=== PATIENT | male | born 1960 | race Hispanic/Latino ===

== ENCOUNTER 2022-09-15 04:35 | Emergency (ER) | payer SELFPAY ==
[~2022-09-15] VITALS: Ht 170.2 cm; Wt 62.0 kg
[2022-09-15] VITALS (29 sets, daily range): BP systolic 109–269; BP diastolic 60–161
[~2022-09-15 04:35] MED LIST: NAPROSYN500 MG PO; NO MEDS; ZITHROMAX250 MG PO
[2022-09-15 05:03] LABS: IMMATURE GRANULOCYTES 0.4 % (0.0-5.0); MEAN CELL VOLUME 89.2 fL CALC (80.0-100.0); MEAN CORPUSCULAR HGB 29.8 pG CALC (26.0-32.0); MEAN CORPUSCULAR HGB CONC 33.4 g/dL CAL (32.0-36.0); NEUT# 9.92 thou/uL (1.82-7.42); RED BLOOD COUNT 3.89 mill/uL (4.70-6.10); RED CELL DISTRI WIDTH 13.8 % (11.5-15.5)
[2022-09-15 05:05] LABS: HEMATOCRIT 34.7 % (39.0-50.0); HEMOGLOBIN 11.6 g/dl (14.0-18.0)
[2022-09-15 05:16] LABS: ALBUMIN 3.3 g/dL (3.2-5.0); BILIRUBIN, TOTAL 0.3 mg/dL (0.0-1.4); POTASSIUM 4.3 mmol/l (3.5-5.1); TOTAL PROTEIN 7.3 g/dL (6.3-8.2)
[2022-09-15 05:18] LABS: CREATININE 7.1 mg/dL (0.7-1.3); D-DIMER 1.31 mg/L (0.19-0.60)
[2022-09-15 05:19] LABS: PROTHROMBIN TIME 9.8 SECONDS (9.0-12.5)
[2022-09-15] MEDS ORDERED: [UNRECOGNIZED DRUG - OTHER] PO (05:22)
[2022-09-15 05:26] LABS: URINE BILIRUBIN - DIPSTICK NEGATIVE (NEGATIVE); URINE BLOOD DIPSTICK MODERATE (NEGATIVE); URINE COLOR YELLOW; URINE GLUCOSE - DIPSTICK 250 mg/dL (NEGATIVE); URINE KETONE NEGATIVE (NEGATIVE); URINE LEUK ESTERASE NEGATIVE (NEGATIVE); URINE PH 6.5 (4.5-8.0); URINE PROTEIN - DIPSTICK >=300 mg/dL (NEG-TRACE); URINE UROBILINOGEN - DIPSTICK 0.2 E.U./dL (0.2)
[2022-09-15 05:39] LABS: URINE NITRITE - DIPSTICK NEGATIVE (Negative)
[2022-09-15 05:40] LABS: URINE SQUAMOUS EPITHELIAL CELL FEW EPI/hpf (0-FEW); URINE WBC 0-2 WBC/hpf (0-5)
== END 2022-09-15 07:02 | disposition short-term general hospital (02) | DRG 189 ==
LOC: ED 04:35
PROVIDERS: Family Medicine
PROC: 0T9B70Z Drainage of Bladder with Drainage Device, Via Natural or Artificial Opening (ICD-10-PCS; principal; 2022-09-15)
DX: J81.1 Chronic pulmonary edema (principal); N17.9 Acute kidney failure, unspecified; E87.20 Acidosis, unspecified; I10 Essential (primary) hypertension; E11.9 Type 2 diabetes mellitus without complications; Z79.4 Long term (current) use of insulin

== ENCOUNTER 2022-09-22 02:34 | Inpatient (IN) | payer SELFPAY ==
[~2022-09-22] VITALS: Ht 162.6 cm; Wt 60.4 kg
[2022-09-22] VITALS (53 sets, daily range): BP systolic 113–218; BP diastolic 7–111
[~2022-09-22 02:34] MED LIST changes: +[UNRECOGNIZED DRUG - OTHER] PO
[2022-09-22 03:11] LABS: HEMOGLOBIN 9.5 g/dl (14.0-18.0); IMMATURE GRANULOCYTES 0.1 % (0.0-5.0); MEAN CELL VOLUME 88.8 fL CALC (80.0-100.0); MEAN CORPUSCULAR HGB 30.4 pG CALC (26.0-32.0); MEAN CORPUSCULAR HGB CONC 34.2 g/dL CAL (32.0-36.0); NEUT# 5.13 thou/uL (1.82-7.42); RED BLOOD COUNT 3.13 mill/uL (4.70-6.10); RED CELL DISTRI WIDTH 13.6 % (11.5-15.5)
[2022-09-22 03:12] LABS: HEMATOCRIT 27.8 % (39.0-50.0)
[2022-09-22 03:19] LABS: BILIRUBIN, TOTAL 0.3 mg/dL (0.0-1.4); POTASSIUM 3.7 mmol/l (3.5-5.1); TOTAL PROTEIN 6.2 g/dL (6.3-8.2)
[2022-09-22 03:28] LABS: CREATININE 6.6 mg/dL (0.7-1.3)
[2022-09-23] VITALS (30 sets, daily range): BP systolic 127–171; BP diastolic 61–129
[2022-09-23 00:49] LABS: HEMATOCRIT 27.1 % (39.0-50.0); HEMOGLOBIN 9.2 g/dl (14.0-18.0); IMMATURE GRANULOCYTES 0.5 % (0.0-5.0); MEAN CELL VOLUME 89.1 fL CALC (80.0-100.0); MEAN CORPUSCULAR HGB 30.3 pG CALC (26.0-32.0); MEAN CORPUSCULAR HGB CONC 33.9 g/dL CAL (32.0-36.0); NEUT# 3.78 thou/uL (1.82-7.42); RED BLOOD COUNT 3.04 mill/uL (4.70-6.10); RED CELL DISTRI WIDTH 13.8 % (11.5-15.5)
[2022-09-23 01:05] LABS: ANION GAP 12 (6-22 (CALC)); BUN 46 mg/dL (9-20); CARBON DIOXIDE 23 mmol/l (22-30); CHLORIDE 102 mmol/l (95-108); MAGNESIUM 1.8 mg/dL (1.6-2.3); SODIUM 132 mmol/l (137-146)
[2022-09-23 01:18] LABS: ALBUMIN 2.3 g/dL (3.2-5.0); BUN/CREATININE RATIO 7 (12-20 (CALC)); CREATININE 6.5 mg/dL (0.7-1.3); GFR FOR AFR.AMER. 11 ML/MIN (>=60 (CALC)); GFR OTHER RACES 9 ML/MIN (>=60 (CALC))
[2022-09-23] MEDS ORDERED: LIPITOR20 MG PO (10:33)
[2022-09-23] MEDS ORDERED: VIBRAMYCIN100 M2 PO (10:34)
[2022-09-23] MEDS ORDERED: NORMODYNE/TRAN100 MG PO (10:35)
[2022-09-24 00:17] VITALS: BP 143/71
[2022-09-24 06:20] VITALS: BP 164/79
[2022-09-24 07:23] LABS: ALBUMIN 2.6 g/dL (3.2-5.0); POTASSIUM 3.8 mmol/l (3.5-5.1)
[2022-09-24 07:35] LABS: CREATININE 7.2 mg/dL (0.7-1.3)
[2022-09-24 10:20] VITALS: BP 163/81
[2022-09-24 14:25] VITALS: BP 142/70
[2022-09-24 19:30] VITALS: BP 145/71
[2022-09-25] VITALS (7 sets, daily range): BP systolic 131–165; BP diastolic 65–81
[2022-09-25 06:08] LABS: ALBUMIN 2.5 g/dL (3.2-5.0); POTASSIUM 3.9 mmol/l (3.5-5.1)
[2022-09-25 06:20] LABS: CREATININE 7.3 mg/dL (0.7-1.3)
[2022-09-26 04:25] VITALS: BP 164/82
[2022-09-26 06:12] LABS: ALBUMIN 2.7 g/dL (3.2-5.0)
[2022-09-26 06:14] VITALS: BP 171/82
[2022-09-26 06:34] LABS: CREATININE 8.1 mg/dL (0.7-1.3)
[2022-09-26 07:21] VITALS: BP 170/83
[2022-09-26 10:40] VITALS: BP 139/70
== END 2022-09-26 16:00 | disposition short-term general hospital (02) | DRG 291 ==
LOC: ED 02:34 → ED-I 04:10 → ICU 04:34 → ED 04:34 → MS2 09-23 14:41
PROVIDERS: Emergency Medicine; Internal Medicine Nephrology; ADMIT Internal Medicine; ATTEND Internal Medicine
DX: I13.2 Hypertensive heart and chronic kidney disease with heart failure and with stage 5 chronic kidney disease, or end stage renal disease (principal); I50.43 Acute on chronic combined systolic (congestive) and diastolic (congestive) heart failure; J18.9 Pneumonia, unspecified organism; N17.9 Acute kidney failure, unspecified; N18.5 Chronic kidney disease, stage 5; N25.81 Secondary hyperparathyroidism of renal origin; E87.1 Hypo-osmolality and hyponatremia; E87.20 Acidosis, unspecified; E11.22 Type 2 diabetes mellitus with diabetic chronic kidney disease; D63.1 Anemia in chronic kidney disease; T50.916A Underdosing of multiple unspecified drugs, medicaments and biological substances, initial encounter; E55.9 Vitamin D deficiency, unspecified; Z91.128 Patient's intentional underdosing of medication regimen for other reason; Z20.822 Contact with and (suspected) exposure to COVID-19
CPT/HCPCS: J1756

== ENCOUNTER 2022-10-03 16:12 | Observation (INO) | payer SELFPAY ==
[2022-10-03] VITALS (23 sets, daily range): BP systolic 123–201; BP diastolic 60–99
[~2022-10-03] VITALS: Ht 162.6 cm; Wt 60.0 kg
[~2022-10-03 16:12] MED LIST changes: +LIPITOR20 MG PO; +NORMODYNE/TRAN100 MG PO; +VIBRAMYCIN100 M2 PO
--- NOTE | 2022-10-03 16:14 | NUR ---
PT TO ROOM 9. ELEANOR FREDERICK APRN NOTIFIED.
[2022-10-03 17:11] LABS: BASO% 0.9 % (0-3); EOS% 1.7 % (0-8); HEMATOCRIT 30.5 % (39.0-50.0); HEMOGLOBIN 10.4 g/dl (14.0-18.0); IMMATURE GRANULOCYTES 0.2 % (0.0-5.0); LYMPH% 12.7 % (15-41); MEAN CELL VOLUME 89.4 fL CALC (80.0-100.0); MEAN CORPUSCULAR HGB 30.5 pG CALC (26.0-32.0); MEAN CORPUSCULAR HGB CONC 34.1 g/dL CAL (32.0-36.0); MONO% 7.8 % (2-13); NEUT# 8.21 thou/uL (1.82-7.42); NEUT% 76.7 % (42-76); RED BLOOD COUNT 3.41 mill/uL (4.70-6.10); RED CELL DISTRI WIDTH 13.8 % (11.5-15.5)
[2022-10-03 17:25] LABS: ALBUMIN 3.1 g/dL (3.2-5.0); BILIRUBIN, TOTAL 0.3 mg/dL (0.0-1.4); TOTAL PROTEIN 6.2 g/dL (6.3-8.2)
--- NOTE | 2022-10-03 17:49 | NUR ---
Reassessment of patient completed. No distress noted.
[2022-10-03] MEDS ORDERED: RENVELA800 MG PO (18:19)
[2022-10-03] MEDS ORDERED: HYDRALAZINE10 M2 PO (18:19)
--- NOTE | 2022-10-03 18:20 | NUR ---
PT'S DAUGHTER IS PRESENT IN ROOM AND HAD MANY QUESTIONS FOR THE PROVIDER. ELEANOR FREDERICK APRN NOTIFIED.
--- NOTE | 2022-10-03 19:00 | NUR ---
REPORT RECEIVED FROM PAULINE. PT HAS BED ASSIGNMENT. AWAITING TRANSPORT TO FLOOR. FAMILY AT BEDSIDE UPDATED. NO DISTRESS. VSS.
--- NOTE | 2022-10-03 19:30 | NUR ---
FLOOR NURSE NOT AVAILABLE FOR REPORT. AWAITING CALL BACK.
--- NOTE | 2022-10-03 19:46 | NUR ---
REPORT GIVEN TO ROBBIN SHELL FOR ADMISSION.
--- NOTE | 2022-10-03 19:50 | NUR ---
Admission Note Report Given to: ROBBIN SHELL Transported by: Wheelchair X Stretcher Transported with: X Nurse Transporter X Patent IV O2 X Engine Pilot Location: ICU X MS2
--- NOTE | 2022-10-03 19:55 | NUR ---
PATIENT ADMITTED TO [facility] TO ROOM 272 VIA STRETCHER. AMBULATED SELF TO BED. ALERT AND ORIENTED. ABLE TO MAKE NEEDS KNOWN. ASSESSMENT COMPLETE. DENIES ANY PAIN OR DISCOMFORT. NO SIGNS OF DISTRESS. OBSERVED RIGHT CHEST DIALYSIS CATHETER, INTACT. ORIENTED PATIENT TO ROOM, CALL LIGHT AND SURROUNDINGS. BED REMAINS IN LOW POSITION. CALL POWELL IN REACH.
--- NOTE | 2022-10-04 00:20 | NUR ---
PATIENT REMAINS RESTING IN BED. ALERT AND ORIENTED. ABLE TO MAKE NEEDS KNOWN. NO COMPLAINTS VOICED AT THIS TIME. CALL LIGHT AND BELONGINGS REMAIN IN REACH.
[2022-10-04 03:34] VITALS: BP 121/59
--- NOTE | 2022-10-04 04:20 | NUR ---
PATIENT RESTING IN BED. NO SIGNS OF DISTRESS. NO COMPLAINTS OF PAIN. PATIENT REMAINS ALERT AND ABLE TO MAKE NEEDS KNOWN. BED REMAINS IN LOW POSITIOM. CALL LIGHT AND BELONGINGS WITHIN REACH.
[2022-10-04 06:21] LABS: ALBUMIN 2.6 g/dL (3.2-5.0); BILIRUBIN, TOTAL 0.3 mg/dL (0.0-1.4); TOTAL PROTEIN 5.5 g/dL (6.3-8.2)
[2022-10-04 06:25] LABS: BASO% 0.7 % (0-3); EOS% 1.8 % (0-8); HEMATOCRIT 31.2 % (39.0-50.0); HEMOGLOBIN 10.5 g/dl (14.0-18.0); IMMATURE GRANULOCYTES 0.1 % (0.0-5.0); LYMPH% 16.4 % (15-41); MEAN CORPUSCULAR HGB 30.6 pG CALC (26.0-32.0); MEAN CORPUSCULAR HGB CONC 33.7 g/dL CAL (32.0-36.0); MONO% 9.1 % (2-13); NEUT# 7.11 thou/uL (1.82-7.42); NEUT% 71.9 % (42-76); RED BLOOD COUNT 3.43 mill/uL (4.70-6.10); RED CELL DISTRI WIDTH 13.9 % (11.5-15.5)
[2022-10-04 06:55] LABS: CREATININE 5.2 mg/dL (0.7-1.3); POTASSIUM 5.3 mmol/l (3.5-5.1)
[2022-10-04 07:28] VITALS: BP 142/63
--- NOTE | 2022-10-04 08:00 | NUR ---
PT RESTING IN BED STATES NO PAIN. ASSESSMENT COMPLETED. UPDATED PT IN CURRENT PLAN OF CARE,PT INDICATED UNDERSTANDING. FALL/SAFTEY PRECAUTON IN PLACE, CALL LIGHT WITHIN REACH.
[2022-10-04 10:55] VITALS: BP 148/70
[2022-10-04 10:56] VITALS: BP 148/70
--- NOTE | 2022-10-04 12:00 | NUR ---
PT RESTIGN WATCHING TV. STATES NO PAIN. FALL/SAFTEY PRECAUTION IN PLACE, CALL LIGHT WITHIN REACH
[2022-10-04] MEDS ORDERED: NIFEDIPINE ER60 MG PO (14:07)
[2022-10-04 15:19] VITALS: BP 138/67
--- NOTE | 2022-10-04 15:30 | NUR ---
PT TRANSPORTED TO ROOM 286 FOR HEMODIALYSIS VIA WHEELCHAIR. PT ABLE TO STAND AND GET INTO WHEELCHAIR INDEPENDENTLY AND STAND FROM WHEELCHAIR AND GET ONTO RECLINER INDEPENDENTLY. PT HAS TELEMETRY ATTATCHED. ROOM AIR. IV SALINE LOCKED. REPORT RECEIVED FROM PRIMARY NURSE Nicole VAZQUEZ RN. CARE OF PT ASSUMED AT THIS TIME.
--- NOTE | 2022-10-04 15:40 | NUR ---
HEMODIALYSIS TREATMENT INITIATED AT 1539. SEE HEMODIALYSIS TREATMENT PROCESS INTERVENTION AND TABLO TREATMENT FLOWSHEET FOR TREATMENT SPECIFIC DETAILS.
--- NOTE | 2022-10-04 16:00 | NUR ---
PT AT DIALYSIS TREATMENT
[2022-10-04 19:20] VITALS: BP 139/70
--- NOTE | 2022-10-04 19:20 | NUR ---
HEMODIALYSIS TREATMENT COMPLETED AT 1920. SEE HEMODIALYSIS TREATMENT PROCESS INTERVENTION AND TABLO TREATMENT FLOWSHEET FOR TREATMENT SPECIFIC DETAILS.
--- NOTE | 2022-10-04 19:25 | NUR ---
L-AC 20G IV site discontinued, cath intact. No edema , no redness, voices no discomfort.
--- NOTE | 2022-10-04 19:25 | NUR ---
TELEMETRY REMOVED AND RETURNED TO ED.
--- NOTE | 2022-10-04 19:30 | NUR ---
DISCHARGE NOTE Verbal and printed discharge instructions given to pateint and daughter. Patient verbalizes understanding of same. Discharged in good condition via Wheelchair to Home with family. All belongings sent with pt.
== END 2022-10-04 19:00 | disposition home or self-care (01) | DRG 682 ==
LOC: ED 16:12 → ED-I 17:51 → ED 18:09 → MS2 18:10
PROVIDERS: Internal Medicine Nephrology; Nurse Practitioner; Nurse Practitioner Family; ADMIT Internal Medicine; ATTEND Internal Medicine
PROC: 5A1D70Z Performance of Urinary Filtration, Intermittent, Less than 6 Hours Per Day (ICD-10-PCS; principal; 2022-10-04)
DX: I12.0 Hypertensive chronic kidney disease with stage 5 chronic kidney disease or end stage renal disease (principal); N18.6 End stage renal disease; N25.81 Secondary hyperparathyroidism of renal origin; E11.22 Type 2 diabetes mellitus with diabetic chronic kidney disease; Z99.2 Dependence on renal dialysis; D63.1 Anemia in chronic kidney disease
CPT/HCPCS: G0378; J1644; J1756

== ENCOUNTER 2022-10-07 08:28 | Observation (INO) | payer SELFPAY ==
[~2022-10-07] VITALS: Ht 162.6 cm; Wt 60.0 kg
[~2022-10-07 08:28] MED LIST changes: +HYDRALAZINE10 M2 PO; +NIFEDIPINE ER60 MG PO; +RENVELA800 MG PO
[2022-10-07 08:42] VITALS: BP 150/72
[2022-10-07 08:45] VITALS: BP 146/77
[2022-10-07 09:00] VITALS: BP 145/73
[2022-10-07 09:08] LABS: BASO% 0.5 % (0-3); EOS% 1.3 % (0-8); HEMATOCRIT 31.4 % (39.0-50.0); HEMOGLOBIN 10.5 g/dl (14.0-18.0); IMMATURE GRANULOCYTES 0.2 % (0.0-5.0); LYMPH% 14.2 % (15-41); MEAN CELL VOLUME 90.5 fL CALC (80.0-100.0); MEAN CORPUSCULAR HGB 30.3 pG CALC (26.0-32.0); MEAN CORPUSCULAR HGB CONC 33.4 g/dL CAL (32.0-36.0); MONO% 9.2 % (2-13); NEUT# 9.33 thou/uL (1.82-7.42); NEUT% 74.6 % (42-76); RED BLOOD COUNT 3.47 mill/uL (4.70-6.10); RED CELL DISTRI WIDTH 13.9 % (11.5-15.5)
[2022-10-07 09:15] VITALS: BP 146/70
[2022-10-07 09:23] LABS: ALBUMIN 3.1 g/dL (3.2-5.0); BILIRUBIN, TOTAL 0.2 mg/dL (0.0-1.4); POTASSIUM 4.8 mmol/l (3.5-5.1); TOTAL PROTEIN 6.2 g/dL (6.3-8.2)
[2022-10-07 09:24] LABS: CREATININE 6.6 mg/dL (0.7-1.3)
[2022-10-07 11:30] VITALS: BP 157/75
== END 2022-10-07 15:32 | disposition left against medical advice (07) | DRG 682 ==
LOC: ED 08:28 → ED-I 09:31 → ED 09:31 → MS2 09:41
PROVIDERS: Family Medicine; ADMIT Internal Medicine; ATTEND Internal Medicine
PROC: 5A1D70Z Performance of Urinary Filtration, Intermittent, Less than 6 Hours Per Day (ICD-10-PCS; principal; 2022-10-07)
DX: I12.0 Hypertensive chronic kidney disease with stage 5 chronic kidney disease or end stage renal disease (principal); N18.6 End stage renal disease; N25.81 Secondary hyperparathyroidism of renal origin; E11.22 Type 2 diabetes mellitus with diabetic chronic kidney disease; Z99.2 Dependence on renal dialysis; D63.1 Anemia in chronic kidney disease
CPT/HCPCS: G0378; J1644

== ENCOUNTER 2022-10-09 08:51 | Observation (INO) | payer SELFPAY ==
[~2022-10-09] VITALS: Ht 162.6 cm; Wt 56.8 kg
[2022-10-09] VITALS (15 sets, daily range): BP systolic 112–140; BP diastolic 58–72
--- NOTE | 2022-10-09 09:00 | NUR ---
PATIENT TO ROOM 2
[2022-10-09 09:53] LABS: BASO% 0.6 % (0-3); EOS% 2.4 % (0-8); HEMOGLOBIN 10.7 g/dl (14.0-18.0); IMMATURE GRANULOCYTES 0.1 % (0.0-5.0); LYMPH% 17.3 % (15-41); MEAN CELL VOLUME 90.4 fL CALC (80.0-100.0); MEAN CORPUSCULAR HGB 30.2 pG CALC (26.0-32.0); MEAN CORPUSCULAR HGB CONC 33.4 g/dL CAL (32.0-36.0); MONO% 11.2 % (2-13); NEUT# 7.48 thou/uL (1.82-7.42); NEUT% 68.4 % (42-76); RED BLOOD COUNT 3.54 mill/uL (4.70-6.10); RED CELL DISTRI WIDTH 13.5 % (11.5-15.5)
[2022-10-09 10:02] LABS: ALBUMIN 2.8 g/dL (3.2-5.0); POTASSIUM 4.3 mmol/l (3.5-5.1)
[2022-10-09 10:09] LABS: BILIRUBIN, TOTAL 0.3 mg/dL (0.0-1.4)
--- NOTE | 2022-10-09 10:15 | NUR ---
REPORT RECEIVED FROM BESSIE SIEGEL AT THIS TIME. CALL LIGHT WITHIN REACH AND PT AWAITING ADMISSION.
--- NOTE | 2022-10-09 11:20 | NUR ---
PT SITTING IN RM AWAITING ADMISSION AT THIS TIME. CALL LIGHT WITHIN REACH.
--- NOTE | 2022-10-09 12:20 | NUR ---
Admission Note Report Given to: SHANNAN SIEGEL Transported by: X WALKING Wheelchair Stretcher Transported with: Nurse X Transporter Patent IV O2 X Enterprise Architect Location: ICU X MS2
--- NOTE | 2022-10-09 12:23 | NUR ---
Admission Note Report Given to: SHANNAN SIEGEL Transported by: X Wheelchair Stretcher Transported with: Nurse X Transporter Patent IV O2 X Apple Picker Location: ICU X MS2
--- NOTE | 2022-10-09 12:24 | NUR ---
PT ARRIVES FROM ED TO ROOM 286 FOR HEMODIALYSIS AT 1224. PT ARRIVES VIA WHEELCHAIR, ACCOMPANIED BY NURSE KRISHNA PIKE. TELEMETRY ATTATCHED.
--- NOTE | 2022-10-09 12:45 | NUR ---
DRESSING CHANGE TO RIGHT SUBCLAVIAN TUNNELED CATHETER CHANGED, ASEPTIC TECHNIQUE MAINTAINED. CATHETER INSERTION SITE FREE OF DRAINAGE AND ERYTHEMA. EDUCATION PROVIDED TO PT VERBALLY ON CARE OF CVC AND DRESSING AT HOME. PT VERBALIZES UNDERSTANDING.
--- NOTE | 2022-10-09 13:46 | NUR ---
HEMODIALYSIS TREATMENT INITIATED AT 1346. SEE HEMODIALYSIS TREATMENT PROCESS INTERVENTION AND TABLO TREATMENT FLOWSHEET.
--- NOTE | 2022-10-09 13:50 | NUR ---
Aditya HERNANDEZ IN TO SEE PT.
--- NOTE | 2022-10-09 14:20 | NUR ---
MEAL TRAY DELIVERED TO ROOM.
--- NOTE | 2022-10-09 14:46 | NUR ---
PHARMACY CONSULTED TO DOSE RETACRIT. PT'S HGB=10.7. NO INDICATION FOR RETACRIT AT THIS TIME.
--- NOTE | 2022-10-09 17:04 | NUR ---
HEMODIALYSIS TREATMENT COMPLETED AT 1704. SEE HEMODIALYSIS TREATMENT PROCESS INTERVENTION AND TABLO TREATMENT FLOWSHEET FOR TREATMENT SPECIFIC DETAILS.
--- NOTE | 2022-10-09 17:10 | NUR ---
AMA Patient decides to leave AMA. Multiple attempts made to ecourage patient to remain here for continued treatment. Explained to patient all risks of leaving against medical advice including . Pt verbalized understanding of all risks. Pt also encouraged to return to [facility] at any time, especially if symptoms continue or become worse. Pt verbalized understanding. DR. LEWIS AWARE PT SIGNING OUT AMA. TELEMETRY REMOVED AND RETURNED TO [facility] STATION. PT TAKEN DOWN TO ED LOBBY IN WHEELCHAIR, WAITING FOR DAUGHTER NIKKY TO BUFFING MACHINE TENDER. BUFFING MACHINE TENDER CONFIRMED WITH NIKKY ON PHONE.
== END 2022-10-09 17:10 | disposition left against medical advice (07) | DRG 682 ==
LOC: ED 08:51 → ED-I 09:42 → ED 10:24 → MS2 10:25
PROVIDERS: Family Medicine; ADMIT Internal Medicine; ATTEND Internal Medicine
PROC: 5A1D70Z Performance of Urinary Filtration, Intermittent, Less than 6 Hours Per Day (ICD-10-PCS; principal; 2022-10-09)
DX: I12.0 Hypertensive chronic kidney disease with stage 5 chronic kidney disease or end stage renal disease (principal); N18.6 End stage renal disease; N25.81 Secondary hyperparathyroidism of renal origin; E11.22 Type 2 diabetes mellitus with diabetic chronic kidney disease; Z99.2 Dependence on renal dialysis; D63.1 Anemia in chronic kidney disease
CPT/HCPCS: G0378; J1644

== ENCOUNTER 2022-11-25 05:00 | Emergency (ER) | payer SELFPAY ==
[~2022-11-25] VITALS: Ht 162.6 cm; Wt 55.0 kg
[2022-11-25] VITALS (9 sets, daily range): BP systolic 204–235; BP diastolic 103–130
[2022-11-25 05:32] LABS: BASO% 0.7 % (0-3); EOS% 2.3 % (0-8); HEMATOCRIT 37.3 % (39.0-50.0); HEMOGLOBIN 11.7 g/dl (14.0-18.0); IMMATURE GRANULOCYTES 0.1 % (0.0-5.0); LYMPH% 18.4 % (15-41); MEAN CELL VOLUME 89.9 fL CALC (80.0-100.0); MEAN CORPUSCULAR HGB 28.2 pG CALC (26.0-32.0); MEAN CORPUSCULAR HGB CONC 31.4 g/dL CAL (32.0-36.0); MONO% 5.9 % (2-13); NEUT# 7.32 thou/uL (1.82-7.42); NEUT% 72.6 % (42-76); RED BLOOD COUNT 4.15 mill/uL (4.70-6.10); RED CELL DISTRI WIDTH 14.7 % (11.5-15.5)
[2022-11-25 05:44] LABS: POTASSIUM 4.9 mmol/l (3.5-5.1)
[2022-11-25 05:53] LABS: CREATININE 7.1 mg/dL (0.7-1.3)
[2022-11-25] MEDS ORDERED: LEVAQUIN750 M1 PO (06:12)
== END 2022-11-25 06:39 | disposition home or self-care (01) | DRG 193 ==
LOC: ED 05:00
PROVIDERS: Family Medicine
DX: J18.9 Pneumonia, unspecified organism (principal); N18.6 End stage renal disease; J81.1 Chronic pulmonary edema; I12.0 Hypertensive chronic kidney disease with stage 5 chronic kidney disease or end stage renal disease; Z99.2 Dependence on renal dialysis

== ENCOUNTER 2023-01-05 02:53 | Emergency (ER) | payer SELFPAY ==
[2023-01-05] VITALS (41 sets, daily range): BP systolic 132–223; BP diastolic 63–118
[~2023-01-05] VITALS: Ht 162.6 cm; Wt 56.0 kg
[~2023-01-05 02:53] MED LIST changes: +LEVAQUIN750 M1 PO
[2023-01-05 03:46] LABS: BASO% 0.8 % (0-3); EOS% 2.5 % (0-8); IMMATURE GRANULOCYTES 0.3 % (0.0-5.0); LYMPH% 27.2 % (15-41); MEAN CELL VOLUME 88.3 fL CALC (80.0-100.0); MEAN CORPUSCULAR HGB 28.7 pG CALC (26.0-32.0); MEAN CORPUSCULAR HGB CONC 32.5 g/dL CAL (32.0-36.0); NEUT# 4.67 thou/uL (1.82-7.42); NEUT% 60.2 % (42-76); RED BLOOD COUNT 4.53 mill/uL (4.70-6.10); RED CELL DISTRI WIDTH 15.5 % (11.5-15.5)
[2023-01-05 04:14] LABS: BILIRUBIN, TOTAL 0.4 mg/dL (0.2-1.3); POTASSIUM 4.8 mmol/l (3.5-5.1)
[2023-01-05 04:20] LABS: ALBUMIN 3.9 g/dL (3.2-5.0); CREATININE 6.4 mg/dL (0.7-1.3); TOTAL PROTEIN 7.4 g/dL (6.3-8.2)
[2023-01-05] MEDS ORDERED: CLONIDINE0.1 MG PO (05:31)
== END 2023-01-05 06:28 | disposition home or self-care (01) | DRG 682 ==
LOC: ED 02:53
PROVIDERS: Family Medicine
DX: I12.0 Hypertensive chronic kidney disease with stage 5 chronic kidney disease or end stage renal disease (principal); N18.6 End stage renal disease; E11.22 Type 2 diabetes mellitus with diabetic chronic kidney disease; Z99.2 Dependence on renal dialysis; Z79.4 Long term (current) use of insulin; Z20.822 Contact with and (suspected) exposure to COVID-19; R06.02 Shortness of breath

== ENCOUNTER 2023-06-09 23:39 | Inpatient (IN) | payer SELFPAY ==
[~2023-06-09] VITALS: Ht 162.6 cm; Wt 68.1 kg
[~2023-06-09 23:39] MED LIST changes: +CLONIDINE0.1 MG PO
--- NOTE | 2023-06-09 23:49 | NUR ---
PT AMBULATED TO ROOM 14 FOR TRIAGE AND CARE
[2023-06-09 23:53] VITALS: BP 222/104
[2023-06-10] VITALS (122 sets, daily range): BP systolic 125–255; BP diastolic 60–151
[2023-06-10 00:25] LABS: BASO% 1.1 % (0-3); EOS% 2.4 % (0-8); HEMATOCRIT 36.5 % (39.0-50.0); HEMOGLOBIN 11.6 g/dl (14.0-18.0); IMMATURE GRANULOCYTES 0.2 % (0.0-5.0); LYMPH% 20.7 % (15-41); MEAN CELL VOLUME 92.9 fL CALC (80.0-100.0); MEAN CORPUSCULAR HGB 29.5 pG CALC (26.0-32.0); MEAN CORPUSCULAR HGB CONC 31.8 g/dL CAL (32.0-36.0); MONO% 6.7 % (2-13); NEUT# 7.55 thou/uL (1.82-7.42); NEUT% 68.9 % (42-76); RED BLOOD COUNT 3.93 mill/uL (4.70-6.10); RED CELL DISTRI WIDTH 14.4 % (11.5-15.5)
--- NOTE | 2023-06-10 00:30 | NUR ---
PT ASSISTED TO BSC FOR BM.
[2023-06-10 00:49] LABS: CREATININE 10.6 mg/dL (0.7-1.3); POTASSIUM 6.2 mmol/l (3.5-5.1)
--- NOTE | 2023-06-10 00:50 | NUR ---
PT RESTING IN BED. RESP EVEN AND LABORED. ACCESSORY MUSCLE USE NOTED. PT ON 4l NC. AWAKE AND ALERT. DENIES PAIN. INFORMED PT AND FAMILY OF PLAN OF CARE AND WAIT TIME AND THEY VERBALIZED UNDERSTANDING. CALL LIGHT IN REACH.
--- NOTE | 2023-06-10 01:50 | NUR ---
PT REPOSITIONED IN BED. SITTING UP. RESP REMAIN EVEN AND LABORED. AWAKE AND ALERT.
--- NOTE | 2023-06-10 02:30 | NUR ---
PT WITH INCREASED WOB AND DIAPHORETIC. NOTIFIED AND PT PLACED ON BIPAP BY RT
--- NOTE | 2023-06-10 02:52 | NUR ---
REPORT CALLED TO ROBBIN CAMPBELL
--- NOTE | 2023-06-10 03:00 | NUR ---
PT TRANSPORTED TO ICU VIA STRETCHER W/ RT
--- NOTE | 2023-06-10 05:28 | NUR ---
HEMODIALYSIS INITIATED @ 527.
--- NOTE | 2023-06-10 07:59 | NUR ---
REPORT RECIEVED FROM NIGHT RN WHO REMAINS AT BEDSIDE TO CONTINUE HEMODIALYSIS TREATMENT. PT REPORTED TO HAVE COME TO THE ED WITH COMPLAINT OF SOB. PT IS NOTED TO BE ESRD AND GETS DIALYSIS TUE/TR/SAT, BUT IS NOT FOLLOWING A FLUID RESTRICTION. PT IS A/O; PRIMARILY DANISH SPEAKING. LUNGS CLEAR/DIMINISHED; PT IS ON 5L NC. PT WORE BIPAP AT NIGHT. NO COUGH OR SOB NOTED. HEART RHYTHM REGULAR; PT IS NSR BUT APPEARS TO HAVE A BBB ON MONITOR. BP ELEVATED; MAP 162. BOWEL SOUNDS HYPOACTIVE; ABDOMEN SOFT/NON-TENDER. PULSES WEAK ALL EXTREMETIES. SKIN W/D/I. PT AFEBRILE. IV ACCESS R SUBCLAVIAN DIALYSIS CATH AND 20G RAC. PT DENIES ANY PAIN. PT GIVEN BREAKFAST TRAY. CALL LIGHT IN REACH.
--- NOTE | 2023-06-10 10:00 | NUR ---
PT LYING IN BED; PT VERY DROWSY. DIALYSIS COMPLETED. PT HAD SOME CRAMPING IN LEG; LEG MASSAGED. PT DENIED ANY FURTHER NEEDS. CALL LIGHT IN REACH. BP ELEVATED BUT VS STABLE.
--- NOTE | 2023-06-10 10:07 | NUR ---
HEMODIALYSIS TREATMENT COMPLETED AT . 10:07 SEE HEMODIALYSIS TREATMENT PROCESS INTERVENTION AND TABLO TREATMENT FLOWSHEET FOR TREATMENT SPECIFIC DETAILS.
--- NOTE | 2023-06-10 11:00 | NUR ---
NOTIFIED OF PT'S HTN. ORDERS RECIEVED.
--- NOTE | 2023-06-10 11:52 | NUR ---
PT LYING IN BED EYES CLOSED. PT GIVEN LUNCH TRAY BUT DID NOT WANT TO EAT AT THIS TIME. TRAY LEFT AT BEDSIDE. BP REMAINS ELEVATED; ALL OTHER VSS.
--- NOTE | 2023-06-10 12:02 | NUR ---
NOTOFIED OF ELEVATED BP. ORDERS RECIEVED.
--- NOTE | 2023-06-10 13:45 | NUR ---
PHONE CALL RECIEVED FROM DR. PAVON. UPDATED ON PT STATUS.
--- NOTE | 2023-06-10 14:03 | NUR ---
PT RESTING IN BED. PT DENIES ANY NEEDS AT THIS TIME. PT GIVEN IV HYDRALAZINE PER MD ORDERS. CALL LIGHT IN REACH.
--- NOTE | 2023-06-10 16:00 | NUR ---
PT LYING IN BED EYES CLOSED. CALL LIGHT IN REACH. VSS AT THIS TIME. PT DENIED ANY NEEDS.
--- NOTE | 2023-06-10 16:30 | NUR ---
BEAD FILLER AT BEDSIDE TO GET ORDERED LABS AND BLOOD CULTURES.
[2023-06-10 16:57] LABS: HEMATOCRIT 34.7 % (39.0-50.0); HEMOGLOBIN 11.4 g/dl (14.0-18.0); MEAN CELL VOLUME 91.1 fL CALC (80.0-100.0); MEAN CORPUSCULAR HGB 29.9 pG CALC (26.0-32.0); MEAN CORPUSCULAR HGB CONC 32.9 g/dL CAL (32.0-36.0); RED BLOOD COUNT 3.81 mill/uL (4.70-6.10); RED CELL DISTRI WIDTH 14.1 % (11.5-15.5)
[2023-06-10 17:36] LABS: CREATININE 5.9 mg/dL (0.7-1.3); POTASSIUM 6.6 mmol/l (3.5-5.1)
--- NOTE | 2023-06-10 18:00 | NUR ---
PT ADJUSTED IN BED TO SIT UP FOR DINNER. PT EDUCATED ABOUT HIGH POTASSIUM LEVELS AND THE NEED TO STAY IN THE HOSPITAL FOR TREATMENT. PT VERBALIZED UNDERSTANDING. CALL LIGHT IN REACH. VSS.
--- NOTE | 2023-06-10 21:00 | NUR ---
RECEIVED BEDSIDE REPORT FROM Aditya MONAE RN, CARE OF PT ASSUMED AT THIS TIME.
--- NOTE | 2023-06-10 22:00 | NUR ---
PLAN OF CARE DISCUSSED WITH DR. PAVON FROM NEPHROLOGY/ HEMODIALYSIS STANDPOINT. ADDITIONAL HD IS NOT ORDERED OR ANTICIPATED AT THIS TIME.
[2023-06-10 22:48] LABS: CREATININE 6.9 mg/dL (0.7-1.3); POTASSIUM 5.4 mmol/l (3.5-5.1)
[2023-06-11] VITALS (79 sets, daily range): BP systolic 99–182; BP diastolic 55–93
--- NOTE | 2023-06-11 | NUR ---
PT APPEARS TO BE SLEEPING COMFORTABLY. LAYING IN BED WITH EYES CLOSED, RESPIRATIONS REGULAR AND UNLABORED.SB 50'S ON MONITOR, SP02 99%. CALL POWELL REMAINS WITHIN REACH.
--- NOTE | 2023-06-11 02:00 | NUR ---
PT REMAINS SLEEPING WITH REGULAR EVEN RESPIRATIONS. SB ON TANK TRUCK OPERATOR. CALL POWELL REMAINS [place] REACH.
[2023-06-11 05:53] LABS: HEMATOCRIT 29.9 % (39.0-50.0); HEMOGLOBIN 9.7 g/dl (14.0-18.0); MEAN CELL VOLUME 91.7 fL CALC (80.0-100.0); MEAN CORPUSCULAR HGB 29.8 pG CALC (26.0-32.0); MEAN CORPUSCULAR HGB CONC 32.4 g/dL CAL (32.0-36.0); RED BLOOD COUNT 3.26 mill/uL (4.70-6.10); RED CELL DISTRI WIDTH 14.2 % (11.5-15.5)
[2023-06-11 05:55] LABS: ALBUMIN 3.3 g/dL (3.2-5.0)
[2023-06-11 06:08] LABS: CREATININE 7.6 mg/dL (0.7-1.3)
[2023-06-11 06:09] LABS: POTASSIUM 6.5 mmol/l (3.5-5.1)
--- NOTE | 2023-06-11 08:00 | NUR ---
REPORT RECIEVED FROM NIGHT RN. PT LYING IN BED. PT IS A/O. LUNGS CLEAR; PT IS ON 3L NC. PT DENIES SOB OR COUGH. HEART RHYTHM REGULAR. PT IS SINUS ANGELA AND APPEARS TO HAVE RBBB ON MONITOR. ABDOMEN SOFT/ NON-TENDER. BOWEL SOUNDS ACTIVE. PT IS NOT MAKING URINE. PULSES STRONG. SKIN W/D/I. AFEBRILE. PT DENIES ANY PAIN OR NEEDS AT THIS TIME. CALL LIGHT IN REACH. VSS.
--- NOTE | 2023-06-11 09:55 | NUR ---
HEMODIALYSIS INITIATED @ 0955.
--- NOTE | 2023-06-11 10:00 | NUR ---
PT LYING IN BED RECIEVEING DIALYSIS TREATMENT. CALL LIGHT IN REACH. VSS.
--- NOTE | 2023-06-11 12:00 | NUR ---
PT ASLEEP IN BED. PT AWOKEN AND GIVEN LUNCH TRAY. PT DENIED ANY NEEDS. CALL LIGHT IN REACH. VSS.
--- NOTE | 2023-06-11 14:00 | NUR ---
PT LYING IN BED ASLEEP. CALL LIGHT IN REACH. VSS.
--- NOTE | 2023-06-11 14:26 | NUR ---
AT BEDSIDE TO SPEAK WITH PT.
--- NOTE | 2023-06-11 16:00 | NUR ---
PT LYING IN BED. FAMILY AT BEDSIDE. PT DENIED ANY NEEDS. VSS.
--- NOTE | 2023-06-11 18:00 | NUR ---
PT SITTING IN BED EATING DINNER. PT DENIED ANY NEEDS. CALL LIGHT IN REACH. VSS.
--- NOTE | 2023-06-11 19:15 | NUR ---
awakens easily. denies distress. school bus monitor shows sinus rhythm ivcd. #20 rac saline lock. rt chest dialysis port in place. has not voided. fall precautions cont.
--- NOTE | 2023-06-11 22:00 | NUR ---
eyes closed. no distress. air sampling and monitoring shows sinus rhythm ivcd.
[2023-06-12] VITALS (12 sets, daily range): BP systolic 42–152; BP diastolic 27–73
--- NOTE | 2023-06-12 00:01 | NUR ---
eyes closed. no distress.
--- NOTE | 2023-06-12 02:00 | NUR ---
resting quietly. resps even & unlabored. no apparent distress.
--- NOTE | 2023-06-12 04:00 | NUR ---
eyes closed. monitoring coordinator shows sinus jerrica ivcd.
--- NOTE | 2023-06-12 05:30 | NUR ---
lab here. blood drawn.
[2023-06-12 06:13] LABS: ALBUMIN 3.4 g/dL (3.2-5.0)
[2023-06-12 06:20] LABS: POTASSIUM 3.9 mmol/l (3.5-5.1)
[2023-06-12 06:21] LABS: CREATININE 5.7 mg/dL (0.7-1.3)
--- NOTE | 2023-06-12 08:00 | NUR ---
REPORT RECIEVED FROM NIGHT RN. PT IS A/O. DENIED ANY PAIN OR NEEDS AT THIS TIME. PT GIVEN BREAKFAST TRAY AND SITTING AT EDGE OF BED TO EAT. LUNGS CLEAR/DIMINISHED. PT IS ON RA. NO COUGH OR SOB NOTED AT THIS TIME. HEART RHYTHM REGULAR; PT IS SINUS ANGELA WITH WHAT APPEARS TO BE A RBBB ON MONITOR. BOWEL SOUNDS ACTIVE. ABDOMEN NON-TENDER. PT NOT MAKING URINE; PT ON DIALYSIS. PULSES STRONG ALL EXTREMETIES. SKIN W/D/I. PT AFEBRILE. IV ACCESS 20G RAC AND R SUBCLAVIAN DIALYSIS CATHETER. CALL LIGHT IN REACH. VSS.
--- NOTE | 2023-06-12 08:40 | NUR ---
PHONE CALL RECIEVED FROM DR. PAVON; UPDATED ON PT STATUS. DR. PAVON OKAY WITH PT TO DISCHARGE HOME TODAY LONG HE CAN MAKE DIALYSIS APPT TODAY. PHONE CALL PLACED TO DR. BURLESON TO INFORM OF DR. LEE WISHES. PER DR. BURLESON, HE WILL DISCHARGE PT THIS MORNING.
[2023-06-12] MEDS ORDERED: HYDRALAZINE HYD25 MG PO (09:16)
[2023-06-12] MEDS ORDERED: OMNI-PAC300 MG PO ×2 (09:22→12:21)
[2023-06-12] MEDS ORDERED: VIBRAMYCIN100 M2 PO ×2 (09:23→12:20)
--- NOTE | 2023-06-12 09:35 | NUR ---
PT GIVEN DISCHARGE EDUCATION. PT AWARE THAT HE NEEDS TO KEEP APPT TODAY FOR DIALYSIS. PT DENIED ANY QUESTIONS ABOUT MEDICATIONS AND VERBALIZED UNDERSTANDING OF DISCHARGE TEACHING. PT DRESSED IN OWN CLOTHING. IV REMOVED. DIALYSIS CATH COVERED APPROPRIATELY. PT NOW WAITING DAUGHTER TO PICK HIM UP.
--- NOTE | 2023-06-12 10:30 | NUR ---
PT TAKEN TO ER ENTRANCE BY WHEELCHAIR. DAUGHTER WAITING TO PICK HIM UP. PT LEFT IN GOOD CONDITION AND AMBULATED TO VEHICLE WITHOUT DIFFICULTY.
== END 2023-06-12 10:30 | disposition home or self-care (01) | DRG 682 ==
LOC: ED 23:39 → ICU 06-10 01:32
PROVIDERS: Family Medicine; Internal Medicine Nephrology; ADMIT Student in an Organized Health Care Education/Training Program; ATTEND Student in an Organized Health Care Education/Training Program
PROC: 5A1D70Z Performance of Urinary Filtration, Intermittent, Less than 6 Hours Per Day (ICD-10-PCS; principal; 2023-06-10)
PROC: 5A09357 Assistance with Respiratory Ventilation, Less than 24 Consecutive Hours, Continuous Positive Airway Pressure (ICD-10-PCS; 2023-06-10)
PROC: 5A1D70Z Performance of Urinary Filtration, Intermittent, Less than 6 Hours Per Day (ICD-10-PCS; 2023-06-11)
DX: I12.0 Hypertensive chronic kidney disease with stage 5 chronic kidney disease or end stage renal disease (principal); J18.9 Pneumonia, unspecified organism; N18.6 End stage renal disease; N25.81 Secondary hyperparathyroidism of renal origin; E87.5 Hyperkalemia; Z99.2 Dependence on renal dialysis; E11.22 Type 2 diabetes mellitus with diabetic chronic kidney disease; D63.1 Anemia in chronic kidney disease; Z91.119 Patient's noncompliance with dietary regimen due to unspecified reason
CPT/HCPCS: J1644

== ENCOUNTER 2024-06-28 00:08 | Emergency (ER) | payer MEDICARE ==
[2024-06-28] VITALS (7 sets, daily range): BP systolic 154–188; BP diastolic 74–92
[~2024-06-28] VITALS: Ht 162.6 cm; Wt 60.0 kg
[~2024-06-28 00:08] MED LIST changes: +DICLOFENAC SODIUM2 % TD; +HYDRALAZINE HYD25 MG PO; +OMNI-PAC300 MG PO
[2024-06-28 01:02] LABS: BASO% 1.4 % (0-3); EOS% 3.8 % (0-8); HEMATOCRIT 35.3 % (39.0-50.0); HEMOGLOBIN 11.3 g/dl (14.0-18.0); IMMATURE GRANULOCYTES 0.1 % (0.0-5.0); LYMPH% 11.3 % (15-41); MEAN CELL VOLUME 94.6 fL CALC (80.0-100.0); MEAN CORPUSCULAR HGB 30.3 pG CALC (26.0-32.0); MONO% 6.3 % (2-13); NEUT# 7.13 thou/uL (1.82-7.42); NEUT% 77.1 % (42-76); RED BLOOD COUNT 3.73 mill/uL (4.70-6.10); RED CELL DISTRI WIDTH 13.9 % (11.5-15.5)
[2024-06-28 01:12] LABS: ALBUMIN 4.5 g/dL (3.2-5.0); POTASSIUM 4.7 mmol/l (3.5-5.1); TOTAL PROTEIN 8.4 g/dL (6.3-8.2)
[2024-06-28 01:16] LABS: CREATININE 6.8 mg/dL (0.7-1.3)
== END 2024-06-28 02:20 | disposition home or self-care (01) ==
LOC: ED 00:08
PROVIDERS: Family Medicine
DX: E87.70 Fluid overload, unspecified (principal); J81.1 Chronic pulmonary edema; I12.0 Hypertensive chronic kidney disease with stage 5 chronic kidney disease or end stage renal disease; E11.22 Type 2 diabetes mellitus with diabetic chronic kidney disease; N18.6 End stage renal disease; Z99.2 Dependence on renal dialysis; I44.7 Left bundle-branch block, unspecified

== ENCOUNTER 2024-09-06 08:42 | Emergency (ER) | payer MEDICARE ==
[2024-09-06] VITALS (22 sets, daily range): BP systolic 171–234; BP diastolic 85–114
[~2024-09-06] VITALS: Ht 162.6 cm; Wt 55.8 kg
[2024-09-06 09:04] LABS: BASO% 1.4 % (0-3); EOS% 4.2 % (0-8); HEMATOCRIT 40.8 % (39.0-50.0); HEMOGLOBIN 12.9 g/dl (14.0-18.0); IMMATURE GRANULOCYTES 0.1 % (0.0-5.0); LYMPH% 18.7 % (15-41); MEAN CELL VOLUME 96.5 fL CALC (80.0-100.0); MEAN CORPUSCULAR HGB 30.5 pG CALC (26.0-32.0); MEAN CORPUSCULAR HGB CONC 31.6 g/dL CAL (32.0-36.0); MONO% 6.1 % (2-13); NEUT# 5.31 thou/uL (1.82-7.42); NEUT% 69.5 % (42-76); RED BLOOD COUNT 4.23 mill/uL (4.70-6.10); RED CELL DISTRI WIDTH 14.5 % (11.5-15.5)
[2024-09-06] MEDS ORDERED: hydrALAZINE HCL 20 MG/ML VIAL(1 ML) IV ONE (09:05)
[2024-09-06] MEDS ORDERED: LABETALOL HCL 20 MG/ 4 ML CARTRG IV ONE ×2 (09:05→10:15)
[2024-09-06] MEDS ORDERED: COZAAR100 MG PO (09:09)
[2024-09-06] MEDS ORDERED: PROCARDIA XL60 MG PO (09:10)
[2024-09-06] MEDS ORDERED: HYDRALAZINE HYD25 MG PO ×2 (09:11→09:13)
[2024-09-06 09:19] LABS: ALBUMIN 4.5 g/dL (3.2-5.0); BILIRUBIN, TOTAL 1.3 mg/dL (0.2-1.3); POTASSIUM 4.7 mmol/l (3.5-5.1); TOTAL PROTEIN 8.7 g/dL (6.3-8.2)
[2024-09-06 09:46] LABS: CREATININE 6.2 mg/dL (0.7-1.3)
[2024-09-06] MEDS ORDERED: LIDOcaine HCl 1% (Local Anesth.) 20 ML VIAL IM STA (10:49)
[2024-09-06] MEDS ORDERED: cefTRIAXone SODIUM 1 GM/VIAL SDV IJ ONE (10:50)
[2024-09-06] MEDS ORDERED: AZITHROMYCIN 500 MG in SODIUM CHLORIDE 0.9% 250 ML IV ONE (10:50)
== END 2024-09-06 12:18 | disposition short-term general hospital (02) ==
LOC: ED 08:42
PROVIDERS: Family Medicine
DX: J18.9 Pneumonia, unspecified organism (principal); I16.1 Hypertensive emergency; I13.2 Hypertensive heart and chronic kidney disease with heart failure and with stage 5 chronic kidney disease, or end stage renal disease; E11.22 Type 2 diabetes mellitus with diabetic chronic kidney disease; N18.6 End stage renal disease; I50.23 Acute on chronic systolic (congestive) heart failure; E78.5 Hyperlipidemia, unspecified; Z99.2 Dependence on renal dialysis; Z20.822 Contact with and (suspected) exposure to COVID-19
CPT/HCPCS: J0456

== ENCOUNTER 2024-11-16 10:15 | Emergency (ER) | payer MEDICARE ==
[~2024-11-16] VITALS: Ht 162.6 cm; Wt 55.3 kg
[~2024-11-16 10:15] MED LIST changes: +COZAAR100 MG PO; +PROCARDIA XL60 MG PO
[2024-11-16] MEDS ORDERED: KETOROLAC TROMETHAMINE 15 MG/ML SDV IM ONE (12:25)
[2024-11-16] MEDS ORDERED: MEDDOSEPAK PO (12:29)
[2024-11-16] MEDS ORDERED: COLCHICINE 0.6 MG/TAB PO ONE ×2 (12:30→13:30)
[2024-11-16 12:44] VITALS: BP 169/73
== END 2024-11-16 13:10 | disposition home or self-care (01) ==
LOC: ED 10:15
DX: M25.561 Pain in right knee (principal); I12.0 Hypertensive chronic kidney disease with stage 5 chronic kidney disease or end stage renal disease; E11.22 Type 2 diabetes mellitus with diabetic chronic kidney disease; N18.6 End stage renal disease; Z99.2 Dependence on renal dialysis
CPT/HCPCS: J1100; J1885